=== PATIENT | male | born 1960 | race Caucasian/White ===

== ENCOUNTER 2021-04-01 14:04 | Emergency (ER) | payer OTHER, SELFPAY ==
--- NOTE | ~2021-04-01 | XR_ITS ---
EXAMINATION: XR chest 2V DATE: 04/01/2021 14:22 INDICATION: Left chest pain. TECHNIQUE: Frontal and lateral views of the chest were obtained. COMPARISON: None. FINDINGS: Calcified pulmonary nodules and calcified hilar lymph nodes are consistent with old granulo matous disease. No pleural effusion or pneumothorax. The heart size is normal. IMPRESSION: 1. No acute cardiopulmonary disease. Reviewed, dictated and finalized at location A.
[2021-04-01 14:02] VITALS: BP 156/92; PULSE 105; RESP 17; TEMP 36.4; O2SAT 100
--- NOTE | 2021-04-01 14:10 | ECG_ITS ---
Measurements Intervals [place] Rate: 105 P: 53 PA: 140 QRS: 57 QRSD: 101 T: 89 QT: 321 QTc: 425 Interpretive Statements SINUS TACHYCARDIA INCOMPLETE RIGHT BUNDLE BRANCH BLOCK LOW QRS VOLTAGE IN LIMB LEADS BORDERLINE ST-T WAVE ABNORMALITY- HIGH LATERAL LEADS BASELINE ARTIFACT- I, II, III, AVR, AVL AVF, V2-V6 ABNORMAL ECG Electronically Signed On 04-01-2021 15:19:04 CDT by Mckinley Hernandez D.O.
--- NOTE | 2021-04-01 14:19 | PC.NURSE ---
Pt taken to xray at this time
[2021-04-01] MEDS: ASPIRIN 81 MG CHEWABLE TABLET 324 MG PO (14:41)
[2021-04-01 14:43] VITALS: PULSE 77
--- NOTE | 2021-04-01 14:53 | ED.CHESTPAIN ---
HPI - Chest Pain General Chief Complaint: Chest Pain Stated Complaint: cp x4 days Time Seen by Provider: 04/01/21 14:09 Source: patient and EMS Mode of arrival: EMS Limitations: no limitations History of Present Illness HPI narrative: Patient is a 61-year-old male with a history of hypertension, hyperlipidemia, coronary artery disease, MT status post 2 stents placed 7 months ago at [facility], who presents for evaluation of chest pain. Patient with intermittent chest pain over the past 3 days mostly on the left side of his chest which at times is sharp and stabbing in nature. No associated shortness of breath. He reports mild, chronic cough which he relates to his tobacco use. He also reports bilateral lower extremity swelling, greater on the right side when compared to the left. Patient endorses IV drug use, last heroin use 8 hours ago. He denies methamphetamine or cocaine use. He denies fever or chills. No nausea or vomiting. Patient's chest pain over the left side of his chest was more severe this morning which prompted his visit to the emergency department. 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 States he has been seen at [facility] in the past but lives closer to this facility, thus was brought here by EMS. Related Data Allergies Allergy/AdvReac Type Severity Reaction Status Date / Time No Known Allergies Allergy Verified 04/01/21 14:10 Review of Systems Review of Systems: Narrative: CONSTITUTIONAL: Denies fever, chills, or sweats. EYES: Denies visual changes, redness, or discharge. ENT: Denies rhinorrhea, reports congestion CARDIOVASCULAR: Reports chest pain and edema RESPIRATORY: Reports chronic cough, denies dyspnea GASTROINTESTINAL: Denies abdominal pain, nausea, vomiting, or diarrhea. GENITOURINARY: Denies dysuria or hematuria. SKIN: Denies rash or itching. MUSCULOSKELETAL: Denies back pain, joint pain, or myalgia. NEUROLOGIC: Denies headache, numbness, or weakness. [facility] Social History Social History (Updated 04/01/21 @ 15:10 by Luna Iverson MD) Smoking status: Heavy tobacco smoker Tobacco type: cigarettes Alcohol intake: never Substance use: current Substance use type: marijuana and heroin Gender identity (if verbalized by the patient): Male Exam Narrative: Exam Narrative: GENERAL: Awake, alert, conversant HEAD: Normocephalic, atraumatic. EYES: PERRLA and EOMI. ENT: Nares clear, no rhinorrhea or epistaxis. Mucous membranes moist. NECK: Supple. CHEST: No respiratory distress, breathing even and non labored, faint crackles at the bases; mild left chest wall tenderness HEART: Tachycardic rate, sinus rhythm ABDOMEN:Non distended, non tender EXTREMITIES: Normal range of motion. Pitting 1+Bilateral lower extremity edema, no calf pain or tenderness SKIN: Warm, dry, no rash. NEURO:No focal deficits. Alert and oriented x3 Course Vital Signs Vital signs: Vital Signs Temperature 36.4 C 04/01/21 14:02 Pulse Rate 105 H 04/01/21 14:02 Respiratory Rate 17 04/01/21 14:02 Blood Pressure 156/92 H 04/01/21 14:02 Pulse Oximetry 100 04/01/21 14:02 Temperature 36.4 C 04/01/21 14:02 Pulse Rate 77 04/01/21 14:43 Respiratory Rate 17 04/01/21 14:02 Blood Pressure 156/92 H 04/01/21 14:02 Pulse Oximetry 100 04/01/21 14:02 MDM - Chest Pain MDM Narrative Medical decision making narrative: Patient presenting for evaluation of chest pain via EMS. At the time of assessment, ABCs are intact and vital signs are stable. Patient is well-appearing without severe symptoms at the time of assessment. Patient mildly tachycardic. Mildly hypertensive. There is bilateral lower extremity edema. No calf pain or tenderness. Given patient's significant medical history of IV drug abuse as well as significant coronary history, I was concerned for possible coronary syndrome. EKG without acute ischemic changes. Patient chest x-ray without acute findings. Wanted to
[2021-04-01 14:56] LABS: Basophils Percent Auto 0.5 % (0.2-1.2); Eosinophils Absolute Auto 0.4 K/mm3 (0-0.3); Eosinophils Percent Auto 4.2 % (0-4.4); Hematocrit 44.8 % (42.0-52.0); Hemoglobin 14.5 g/dL (14.0-18.0); Immature Granulocyte Absolute 0.03 K/mm3 (0.00-0.031); Immature Granulocyte Percent A 0.3 % (0-0.5); Lymphocytes Absolute Auto 1.33 K/mm3 (0.9-3.2); Lymphocytes Percent Auto 15.2 % (18.3-44.2); Mean Corpuscular HGB Conc 32.4 g/dl (32-36); Mean Corpuscular Hemoglobin 28.7 pg (26-34); Mean Corpuscular Volume 88.5 fl (80-100); Mean Platelet Volume 9.2 fl (7.4-10.4); Monocytes Absolute Auto 0.6 K/mm3 (0.1-0.6); Monocytes Percent Auto 6.5 % (2.6-8.5); Neutrophils Absolute Auto 6.4 K/mm3 (1.3-6.7); Neutrophils Percent Auto 73.3 % (45.5-73.1); Platelet Count Result 267 k/mm3 (150-375); Red Blood Count 5.06 M/mm3 (4.6-6.20); Red Cell Distribution Width 13.3 % (11.5-14.5); White Blood Count 8.7 K/mm3 (4.5-10.0)
[2021-04-01 15:06] LABS: INR 0.9; Prothrombin Time 12.1 Seconds (11.1-14.7)
[2021-04-01 15:07] LABS: Anion Gap 13 mmol/L (8-16); Blood Urea Nitrogen 36 mg/dL (9-20); Calcium 9.2 mg/dL (8.4-10.2); Carbon Dioxide 27 mmol/L (22-30); Chloride 98 mmol/L (98-107); Estimated CRCL calculation 56 ml/min; Estimated Glomerular Filt Rate > 60; Glucose 149 mg/dL (75-110); Partial Thromboplastin Time 34.1 SECONDS (22.3-36.8); Potassium 4.9 mmol/L (3.4-5.0); Sodium 138 mmol/L (137-145)
--- NOTE | 2021-04-01 15:07 | PC.NURSE ---
Pt came out of room and stated that he wanted to leave. He states that he wants to go to his hospital Dr. Iverson speaking with patient and explaining why he should stay. Pt states he still wants to leave. Pt signed AMA papers.
[2021-04-01 15:19] LABS: NT Pro B Type Natriuretic Pept 192 pg/mL (5-100); Troponin I 0.017 ng/mL (0.000-0.034)
== END 2021-04-01 15:18 | disposition left against medical advice (07) ==
LOC: ANHED 14:30
PROVIDERS: Emergency Provider Emergency Medicine; PCP Emergency Medicine
DX: R07.89 Other chest pain (principal); R60.0 Localized edema; I10 Essential (primary) hypertension; E78.5 Hyperlipidemia, unspecified; I25.10 Atherosclerotic heart disease of native coronary artery without angina pectoris; I25.2 Old myocardial infarction; Z95.2 Presence of prosthetic heart valve; F17.210 Nicotine dependence, cigarettes, uncomplicated; I45.10 Unspecified right bundle-branch block; R00.0 Tachycardia, unspecified; R94.31 Abnormal electrocardiogram [ECG] [EKG]
CPT/HCPCS: 36415; 71046; 80048; 83880; 84484; 85025; 85610; 85730; 93005; 99284; A9270

== ENCOUNTER 2023-09-05 16:13 | Emergency (ER) | payer OTHER, SELFPAY ==
[2023-09-05] VITALS (12 sets, daily range): BP systolic 96–147; BP diastolic 56–95; PULSE 69–98; RESP 12–18; TEMP 36.7; O2SAT 95–99
--- NOTE | ~2023-09-05 | XR_ITS ---
EXAMINATION: XR foot LT min 3V DATE: 09/05/2023 17:47 INDICATION: Pain in one of the left great toe post injury one week prior. TECHNIQUE: Dorsoplantar, two oblique and lateral views of the left foot were obtained. COMPARISON: None. FINDINGS: Bone alignment is normal. Chronic appearing osteotomy involving the majority of the third distal phal anx with preservation of the proximal articular cortex. No acute fractures identified. There are eros ions with increased lucency and cortical erosion at the medial base of the first proximal phalanx, at both sides of the head of the first metatarsal and involving the first metatarsal sesamoid bones. Th ere is some lucency in the soft tissues along the dorsal and lateral sides of the first metatarsophal angeal joint. Constellation of findings is concerning for infection with septic arthritis and osteomy elitis and could not exclude associated necrotizing fasciitis. Polyarticular osteoarthritis, moderate severity at the first metatarsophalangeal joint and mild at several tarsal metatarsal, interphalange al and remaining metatarsophalangeal joints. Large plantar calcaneal spur. IMPRESSION: 1. Osteolysis at the base of the first proximal phalanx, head of the first metatarsal and first metat arsal sesamoid bones with some surrounding soft tissue gas concerning for infection, septic arthritis with osteomyelitis and possible necrotizing fasciitis. Dr. Silverio discussed these findings with Dr Beba Landa at 6:04 PM. Reviewed, dictated and finalized at location A. ENT EDUCATION SPECIALIST IMPRESSION: 1. Osteolysis at the base of the first proximal phalanx, head of the first meta tarsal and first metatarsal sesamoid bones with some surrounding soft tissue ga s concerning for infection, septic arthritis with osteomyelitis and possible ne crotizing fasciitis. Dr. Silverio discussed these findings with Dr. Landa at 6 :04 PM.
[2023-09-05 16:22] LABS: Glucose Point of Care > 500 mg/dl (65-105)
--- NOTE | 2023-09-05 16:58 | PC.NURSE ---
Pt reports having diabetes for 20+ years, taking insulin, with no meter. States he bases his units on what he eats. Pt comes in due to painful great L toe. TANYA wrapped applied by patient [employer], states he fell 5 days ago and tried to fix it at home himself by rest and ice. Toe is swollen, ecchymotic, and sensation is impaired. Pedal pulse palpated. Ulcer noted to ventral side of L foot with bandage applied by patient, states it's been there for weeks.
--- NOTE | 2023-09-05 17:01 | ED.LOWEXIN ---
HPI - Extremity Injury (Lower) General Chief Complaint: Extremity Injury, Lower Stated Complaint: left Injury diabetic Time Seen by Provider: 09/05/23 17:00 History of Present Illness HPI Narrative: Patient is a 63-year-old male with history of diabetes here with a toe infection. He states that about 1 week ago he stubbed his left great toe. He notes that it was painful but he attempted to try to let it heal itself. 2-3 days ago he started noticing some purplish discoloration of the toe. He then started noticing that it was warm to touch and was worried that it could be infected. He does note a wound at the base of this same foot which has been present for about 1 month. 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 He denies any fever chills. He does note that he last checked his blood sugar about 3 days ago and it was higher than normal at that time. 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 Related Data Allergies Allergy/AdvReac Type Severity Reaction Status Date / Time No Known Allergies Allergy Verified 04/01/21 14:10 Review of Systems Review of Systems: All systems reviewed & are unremarkable except as noted in HPI and below PMFSH Social History Social History (Updated 04/01/21 @ 15:10 by Luna Iverson MD) Smoking status: Heavy tobacco smoker Tobacco type: cigarettes Alcohol intake: never Substance use: current Substance use type: marijuana and heroin Gender identity (if verbalized by the patient): Male Exam Narrative: GENERAL: Well-appearing, well-nourished, and in no acute distress. HEAD: Normocephalic, atraumatic. EYES: PERRLA and EOMI. ENT: Nares clear. Mucous membranes moist. NECK: Supple. CHEST: Clear to auscultation. No respiratory distress. HEART: Regular rate and rhythm. Normal peripheral pulses. ABDOMEN: Soft, nontender, nondistended. EXTREMITIES: Normal range of motion. s/p great toe amputation of the great toe on the right. Decreased ROM due to swelling and pain of the left great toe. Skin changes as described below. SKIN: Warm, dry, ecchymoses and edema throughout the left great toe. No obvious drainage. Toe is warm to touch and has erythema that extends into the midfoot region. It is all tender to touch. No crepitus appreciated. NEURO: No focal deficits. Alert and oriented x3. PSYCH: Normal mood and affect. Course Course Emergency Course: Chart review performed. Patient here with injury to left first toe. BS >500 in triage. Last ED visit was in 2020 for atypical chest pain. Patient seen and evaluated, concern for infection in his left great toe. Will do septic workup, DKA workup and xray to evaluate for osteomyelitis vs fracture. Received a call from x-ray, patient has changes consistent with septic arthritis versus osteomyelitis of the toe. There is some subcu gas, cannot rule out necrotizing fasciitis. Vanc, Zosyn, clindamycin a been ordered. Additional IV fluids as well as subcu insulin been ordered given glucose in the 600s. Page general surgery to discuss case. Anticipate patient when you would be transferred to a higher level of care where there is Podiatry coverage. Lab work reviewed. No leukocytosis, lactic 2.2. CRP 16.6. Sodium 127 however this is likely pseudohyponatremia due to the glucose level of 606. No anion gap, not acidotic. Does not appear to be in DKA. Spoke with Dr. Jain, recommends transfer is probably in patient's best interest for somewhere that has vascular or podiatry coverage. Patient agreeable to transfer to [facility] or [facility]. Will attempt transfer. Spoke to [facility] transfer center, awaiting call back. Repeat blood glucose after 10U insulin and 2L IVF is 414. Will give additional 5U insulin. Still no response from [facility] transfer center, patient agreeable to transfer anywhere at this point. Will contact [facility] transfer
[2023-09-05 17:24] LABS: Fractional Inspired Oxygen 21 %; HCO3 VBG 31.8 mEq/l (24.0-30.0); PCO2 VBG 51.6 mmHg (42.0-48.0)
[2023-09-05 17:25] LABS: PO2 VBG < 27.0 mmHg (35.0-45.0); pH VBG 7.407 (7.300-7.400)
[2023-09-05] MEDS: SODIUM CHLORIDE 0.9% IV 1,000 ML 999 ML IV CONT ×2 (17:40→18:44)
[2023-09-05 18:04] LABS: Basophils Percent Auto 0.4 % (0.2-1.2); Eosinophils Absolute Auto 0.2 K/mm3 (0-0.3); Eosinophils Percent Auto 1.6 % (0-4.4); Hematocrit 37.8 % (42.0-52.0); Hemoglobin 12.2 g/dL (14.0-18.0); Immature Granulocyte Absolute 0.08 K/mm3 (0.00-0.031); Immature Granulocyte Percent A 0.9 % (0-0.5); Lymphocytes Absolute Auto 1.31 K/mm3 (0.9-3.2); Lymphocytes Percent Auto 14.1 % (18.3-44.2); Mean Corpuscular HGB Conc 32.3 g/dl (32-36); Mean Corpuscular Hemoglobin 26.4 pg (26-34); Mean Corpuscular Volume 81.8 fl (80-100); Mean Platelet Volume 9.1 fl (7.4-10.4); Monocytes Absolute Auto 0.7 K/mm3 (0.1-0.6); Monocytes Percent Auto 7.6 % (2.6-8.5); Neutrophils Percent Auto 75.4 % (45.5-73.1); Platelet Count Result 299 k/mm3 (150-375); Red Blood Count 4.62 M/mm3 (4.6-6.20); Red Cell Distribution Width 13.5 % (11.5-14.5); White Blood Count 9.3 K/mm3 (4.5-10.0)
[2023-09-05 18:09] LABS: Lactic Acid Reflex 2.2 mmol/L (0.7-2.0); Prothrombin Time 14.1 Seconds (11.1-14.7)
[2023-09-05 18:11] LABS: Partial Thromboplastin Time 69.1 SECONDS (22.3-36.8)
[2023-09-05 18:14] LABS: Beta-Hydroxybutyrate/Acetoacetate 0.04 mmol/L (0.02-0.27)
[2023-09-05 18:23] LABS: Alanine Aminotransferase 29 U/L (6-50); Albumin Level 3.5 g/dL (3.5-5.1); Alkaline Phosphatase 207 U/L (38-126); Anion Gap 5 mmol/L (8-16); Aspartate Amino Transferase 28 U/L (17-59); Bilirubin,Total 0.4 mg/dL (0.2-1.3); Blood Urea Nitrogen 14 mg/dL (9-20); Calcium 8.5 mg/dL (8.4-10.2); Carbon Dioxide 33 mmol/L (22-30); Chloride 89 mmol/L (98-107); Estimated CRCL calculation 89 ml/min; Estimated Glomerular Filt Rate > 60; Glucose 606 mg/dL (65-110); Potassium 4.1 mmol/L (3.4-5.0); Sodium 127 mmol/L (137-145)
[2023-09-05 18:30] LABS: CRP 16.6 mg/dL (<1.0)
[2023-09-05 18:36] LABS: Glucose Point of Care > 500 mg/dl (65-105)
[2023-09-05] MEDS: INSULIN ASPART (*BKC) 100 UNITS/ML 10 UNITS SUB-Q (18:38)
[2023-09-05] MEDS: CLINDAMYCIN 600 MG/D5W 50 ML 600 MG/50 ML PIGGYBACK 100 MG IVPB (18:44)
[2023-09-05 18:47] LABS: Erythrocyte Sedimentation Rate 32 mm/hr (0-20)
[2023-09-05] MEDS: MORPHINE SULFATE (*CRX) 4 MG/ML INJ IV PUSH (19:23)
[2023-09-05] MEDS: PIPERACILLIN/TAZ 4.5G/NS 100ML 4.5 GM/100 ML BAG IVPB (19:24)
[2023-09-05] MEDS: ONDANSETRON INJ 4 MG/2 ML VIAL IV PUSH (19:24)
[2023-09-05 20:03] LABS: Glucose Point of Care 414 mg/dl (65-105)
[2023-09-05] MEDS: VANCOMYCIN 1,750 MG/NS 500 ML 1,750 MG/500 ML BAG 250 MG IVPB (20:09)
[2023-09-05 20:52] LABS: Reflex Lactic Acid Yes or No Add Lactic
[2023-09-05 21:41] LABS: Glucose Point of Care 301 mg/dl (65-105)
[2023-09-05 21:41] LABS: Lactic Acid 1.4 mmol/L (0.7-2.0)
--- NOTE | 2023-09-05 22:00 | PC.NURSE ---
POC blood glucose was 301. made aware. gave VORB for 3 units of Novolog insulin subq
[2023-09-05] MEDS: INSULIN ASPART (*BKC) 100 UNITS/ML SUB-Q (22:05)
--- NOTE | 2023-09-05 22:59 | PC.NURSE ---
Ayaz with the transfer center called with accepting physician and bed number. Dr. Nicole at [facility] accepted pt to bed #366. Can be called for report at [phone]
--- NOTE | 2023-09-05 23:16 | PC.NURSE ---
Per pt request, Ba the patient's nephew was called at [phone] on patient status.
--- NOTE | 2023-09-05 23:26 | PC.NURSE ---
Report given to ALINA Le. Care of pt transferred.
[2023-09-05 23:42] LABS: Glucose Point of Care 241 mg/dl (65-105)
== END 2023-09-06 02:25 | disposition short-term general hospital (02) ==
PROVIDERS: Emergency Provider Student in an Organized Health Care Education/Training Program; PCP Emergency Medicine
DX: E11.69 Type 2 diabetes mellitus with other specified complication (principal); M86.9 Osteomyelitis, unspecified; F17.210 Nicotine dependence, cigarettes, uncomplicated; Z89.411 Acquired absence of right great toe
CPT/HCPCS: 36415; 73630; 80053; 82010; 82803; 82948; 83605; 85025; 85610; 85652; 85730; 86140; 87040; 96361; 96365; 96366; 96367; 96375; 99285; J1815; J2270; J2405; J2543; J3370; J7030